=== PATIENT | female | born 1990 | race Caucasian/White ===

== ENCOUNTER 2024-05-22 20:37 | Emergency (ER) | payer OTHER ==
[~2024-05-22] VITALS: Ht 175.3 cm; Wt 68.0 kg
[2024-05-22] MEDS ORDERED: KETOROLAC TROMETHAMINE 15 MG/ML VIAL ONE (21:56)
[2024-05-22] MEDS ORDERED: LIDOCAINE 5% (PATCH) 1 EA PATCH TP ONE (21:56)
[2024-05-22] MEDS ORDERED: ACETAMINOPHEN ES 500 MG TABLET ONE (21:56)
[2024-05-22] MEDS: LIDOCAINE 5% (PATCH) 1 EA PATCH TP SCH (22:03)
[2024-05-22] MEDS: KETOROLAC TROMETHAMINE 15 MG/ML VIAL IM ONE (22:03)
[2024-05-22] MEDS: ACETAMINOPHEN ES 500 MG TABLET PO ONE (22:03)
[2024-05-22 22:50] VITALS: BP 127/85; TEMP 98.6; O2SAT 98
== END 2024-05-22 22:50 | disposition home or self-care (01) ==
LOC: ER 20:42
DX: R07.81 Pleurodynia (principal); J45.909 Unspecified asthma, uncomplicated; F17.200 Nicotine dependence, unspecified, uncomplicated; Z88.0 Allergy status to penicillin
CPT/HCPCS: 99283; 96372; 71100; J1885